=== PATIENT | male | born 1965 | race Caucasian/White ===

== ENCOUNTER 2018-10-13 19:17 | Emergency (ER) | payer MEDICAID ==
--- NOTE | 2018-10-13 19:48 | ED Physician Chart ---
ED Chief Complaint/HPI - Patient Information Date Seen:: 10/13/18 Time Seen:: 19:32 Chief Complaint:: right upper extremity injury History of Present Illness:: this is a 53 yr old male who states that he sustained several fractures from a fall on his right arm a week ago. he states that he was seen in an ER and told that he had a fracture but he is concerned that a fracture was missed. he is right handed. Allergies:: Allergies Allergy/AdvReac Type Severity Reaction Status Date / Time No Known Allergies Allergy Verified 10/13/18 19:26 Vitals:: Vital Signs - 8 hr 10/13/18 19:20 Temp 97.3 F HR 75 RR 18 BP 140/84 O2 Sat % 97 Historian:: Patient Review:: Nurse's Note Reviewed ED Review of Systems - Review of Systems General/Constitutional: No fever, No chills, No weight loss, No weakness, No diaphoresis, No edema, No loss of appetite Skin: No skin lesions, No rash, No bruising Head: No headache, No light-headedness Eyes: No loss of vision, No pain, No diplopia ENT: No earache, No nasal drainage, No sore throat, No tinnitus Neck: No neck pain, No swelling, No thyromegaly, No stiffness, No mass noted Cardio Vascular: No chest pain, No palpitations, No PND, No orthopnea, No edema Pulmonary: No SOB, No cough, No sputum, No wheezing GI: No nausea, No vomiting, No diarrhea, No pain, No melena, No hematochezia, No constipation, No hematemesis G/U: No dysuria, No frequency, No hematuria Musculoskeletal: Bone or joint pain (right upper extremity), No back pain, No muscle pain Endocrine: No polyuria, No polydipsia Psychiatric: No prior psych history, No depression, No anxiety, No suicidal ideation Hematopoietic: No bruising, No lymphadenopathy Allergic/Immuno: No urticaria, No angioedema Neurological: No syncope, No focal symptoms, No weakness, No paresthesia, No headache, No seizure, No dizziness, No confusion, No vertigo ED Past Medical History - Past Medical History Obtainable: Yes Past Medical History: CAD (he states that he has a stent in his heart.) Family History: None Social History: Non Smoker, No Alcohol, No Drug Use, Single Surgical History: other (stent placement in the heart) Psychiatricy History: None Medication: Reviewed Family Medical History - Family Member Mother History Unknown: Yes ED Physical Exam - Physical Examination General/Constitutional: Awake, Well-developed, well-nourished, Alert, No distress, GCS 15, Non-toxic appearing, Ambulatory Head: Atraumatic Eyes: Lids, conjuctiva normal, PERRL, EOMI Skin: Nl inspection, No rash, No skin lesions, No ecchymosis, Well hydrated, No lymphadenopathy ENMT: External ears, nose nl, Nasal exam nl, Lips, teeth, gums nl Neck: Nontender, Full ROM w/o pain, No JVD, No nuchal rigidity, No bruit, No mass, No stridor Respiratory: Nl effort/Exclusion, Clear to Auscultation, No Wheeze/Rhonchi/Rales Cardio Vascular: RRR, No murmur, gallop, rubs, NL S1 S2 GI: No tenderness/rebounding/guarding, No organomegaly, No hernia, Normal BS's, Nondistended, No mass/bruits, No McBurney tenderness : No CVA tenderness Extremities: No tenderness or effusion, Full ROM, normal strength in all extremities, No edema, Normal digits & nails Neuro/Psych: Alert/oriented, DTR's symmetric, Normal sensory exam, Normal motor strength, Judgement/insight normal, Mood normal, Normal gait, No focal deficits Misc: Normal back, No paraspinal tenderness ED Labs/Radiology/EKG Results - Radiology Results Results: right humerus, right elbow, right forearm, right wrist = fractured radial head, foreign body in the humerus. ED Assessment - Assessment General Assessment: fracture right uppe extremity. ED Septic Shock - . Is Septic Shock (SBP<90, OR Lactate>4 mmol\L) present?: No - <6hrs of presentation: Vital Signs: Vital Signs - 8 hr 10/13/18 19:20 Temp 97.3 F HR 75 RR 18 BP 140/84 O2 Sat % 97 ED Reassessment (Disposition) - Diagnosis Diagnosis:: fractured right radial head foreign body right humerus - Aftercare/Follow up Instructions Aftercare/Follow-Up Instructions:: Counseled pt regarding lab results/diagnosis & need follow up, Refer to Discharge Instructions, Counseled pt & family regarding lab results/diagnosis & need follow up Notes:: he was told to see an orthopedic surgeon. - Patient Disposition Discharge/Transfer:: Home Condition at Disposition:: Unchanged
--- NOTE | 2018-10-14 10:00 | Diagnostic Imaging Report ---
Right humerus (2 views) HISTORY: Pain, trauma No acute bony abnormalities. No fractures The bony protuberances extends off the cortex of the distal humerus. The appearance may be associated with an osteochondroma. Small calcification noted in the soft tissues adjacent to the lateral aspect of the humeral head. Findings consistent with changes of calcific tendinitis. IMPRESSION: 1. No acute bony abnormalities 2. Small bony protuberance extending off the cortex of the distal humerus. The appearance is suggestive of an incidental osteochondroma 3. 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
--- NOTE | 2018-10-14 10:02 | Diagnostic Imaging Report ---
Right forearm (2 views) HISTORY: Pain, trauma Mildly displaced fracture of the radial head noted. Bony protuberance extends off the cortex of the distal humerus. The appearance suggests an osteochondroma. IMPRESSION: 1. Mildly displaced fracture radial head
--- NOTE | 2018-10-14 10:02 | Diagnostic Imaging Report ---
Right elbow (3 views) HISTORY: Pain, trauma There is a mildly displaced fracture of the radial head. Evidence of joint effusion. Calcific density noted along the cortex of the distal humerus. This may be originating from the cortex and associated with a small osteochondroma. Irregularity noted along the medial epicondyle. This may be chronic. IMPRESSION: 1. Fracture radial head 2. Irregularity along the medial epicondyle. Finding may be chronic. Follow-up radiographs would provide additional assessment. 3. Suggestion of bony density extending off the cortex of the distal humerus. The finding may be related to an osteochondroma.
--- NOTE | 2018-10-14 10:03 | Diagnostic Imaging Report ---
Right wrist (3 views) HISTORY: Pain, trauma No acute bony amenities. No fractures. Mild degenerative changes noted about the first carpal metacarpal joint region. IMPRESSION: 1. No acute abnormalities. In the presence of recent trauma and persistent symptoms, a repeat radiograph in 5-7 days may be helpful for detection of a subtle or occult fracture.
== END 2018-10-13 20:45 | disposition home or self-care (01) ==
LOC: ER 19:17
DX: S52.121A Displaced fracture of head of right radius, initial encounter for closed fracture (principal); I25.10 Atherosclerotic heart disease of native coronary artery without angina pectoris; W18.39XA Other fall on same level, initial encounter; Y93.89 Activity, other specified; Y92.89 Other specified places as the place of occurrence of the external cause; Y99.8 Other external cause status
CPT/HCPCS: 73060-TC-RT; 73080-TC-RT; 73090-TC-RT; 73110-TC-RT; Z7502